=== PATIENT | female | born 1960 | race African-American/Black ===

== ENCOUNTER 2019-10-15 13:31 | Inpatient (IN) | payer OTHER ==
--- NOTE | 2019-10-15 16:20 | HP ---
CIWA Score - Admission Criteria OASAS Guidelines: Admission for Medically Managed Detox: Requires at least one of the followin. CIWA greater than 12 2. Seizures within the past 24 hours 3. Delirium tremens within the past 24 hours 4. Hallucinations within the past 24 hours 5. Acute intervention needed for co occurring medical disorder 6. Acute intervention needed for co occurring psychiatric disorder 7. Severe withdrawal that cannot be handled at a lower level of care (continued vomiting, continued diarrhea, abnormal vital signs) requiring intravenous medication and/or fluids 8. Admission ROS S - HPI Chief Complaint: Seeking admission to Rehab. Allergies/Adverse Reactions: Allergies Allergy/AdvReac Type Severity Reaction Status Date / Time ibuprofen [From Motrin] Allergy Swelling Verified 10/15/19 17:22 Penicillins Allergy Swelling Verified 10/15/19 17:22 History of Present Illness: 59 years old female is seeking admission to Rehab. This is her first admission at [facility]. She reports that she completed her detox from alcohol at [facility] for the period - 10/15/2019. She is on Methadone 30mg tablet oral daily maintenance therapy with [facility]. Dose is yet to be confirmed by the nurse. Patient reports medical history of diabetes type 2, hypertension, hyperlipidemia, asthma, GERD and psych. history of depression. She denies suicidal attempt/ suicidal ideation at this time. She also reports 2 strokes from uncontrolled blood pressure. Patient is on SSI and lives alone in [place]. Exam Limitations: No Limitations - Ebola screening Have you traveled outside of the country in the last 21 days: No Have you been sick,other than usual withdrawal symptoms: No Do you have a fever: No - Review of Systems Constitutional: No Symptoms Reported EENT: reports: No Symptoms Reported Respiratory: reports: No Symptoms reported Cardiac: reports: No Symptoms Reported GI: reports: No Symptoms Reported : reports: No Symptoms Reported Musculoskeletal: reports: No Symptoms Reported Integumentary: reports: No Symptoms Reported Neuro: reports: No Symptoms reported Endocrine: reports: No Symptoms Reported Hematology: reports: No Symptoms Reported Psychiatric: reports: No Sypmtoms Reported, Mood/Affect Appropiate, Orientated x3 Other Systems: Reviewed and Negative Patient History - Patient Medical History Hx Anemia: No Hx Asthma: Yes Hx Chronic Obstructive Pulmonary Disease (COPD): No Hx Cancer: No Hx Cardiac Disorders: No Hx Congestive Heart Failure: No Hx Hypertension: Yes Hx Hypercholesterolemia: Yes Hx Pacemaker: No HX Cerebrovascular Accident: Yes (2 strokes) Hx Seizures: No Hx Diabetes: Yes Hx Gastrointestinal Disorders: Yes (GERD) Hx Liver Disease: No Hx Genitourinary Disorders: No Hx Sexually Transmitted Disorders: No Hx Renal Disease (ESRD): No Hx Thyroid Disease: No Hx Human Immunodeficiency Virus (HIV): No (Negative 2018) Hx Hepatitis C: No Hx Depression: Yes Hx Suicide Attempt: No (Denies suicidal ideation at this time) Hx Bipolar Disorder: No Hx Schizophrenia: No - Patient Surgical History Past Surgical History: Yes Hx Neurologic Surgery: No Hx Cataract Extraction: No Hx Cardiac Surgery: No Hx Lung Surgery: No Hx Breast Surgery: No Hx Breast Biopsy: No Hx Abdominal Surgery: No Hx Appendectomy: No Hx Cholecystectomy: No Hx Genitourinary Surgery: No Hx Section: No Hx Orthopedic Surgery: No Hx Hysterectomy: Yes (2003) Anesthesia Reaction: No - PPD History Previous Implant?: Yes Documented Results: Negative w/o proof Implanted On Prior R Admission?: No PPD to be Administered?: Yes - Reproductive History Patient is a Female of Child Bearing Age (11 -55 yrs old): Yes LMP comment: Menopausal - Smoking Cessation Smoking history: Current every day smoker Have you smoked in the past 12 months: Yes Aproximately how many cigarettes per day: 20 Hx Chewing Tobacco Use: No Initiated information on smoking cessation: Yes 'Breaking Loose' booklet given: 10/15/19 - Substance & Tx. History Hx Alcohol Use: Yes Hx Substance Use: Yes Substance Use Type: Alcohol, Cocaine Hx Substance Use Treatment: Yes ([facility]) - Substances abused Alcohol Substance route: Oral Frequency: Daily Amount used: beer- 1 six pack Age of first use: 11 Date of last use: 10/12/19 Admission Physical Exam BHS - Physical General Appearance: Yes: Within Normal Limits HEENTM: Yes: Within Normal Limits, EOMI, Normal ENT Inspection, Normal Voice, ASHA Respiratory: Yes: Lungs Clear, Normal Breath Sounds, No Respiratory Distress Neck: Yes: Within Normal Limits Breast: Yes: Breast Exam Deferred Cardiology: Yes: Bradycardia (Patient reports history of bradycardia) Abdominal: Yes: Normal Bowel Sounds, Soft Genitourinary: Yes: Within Normal Limits Back: Yes: Normal Inspection Musculoskeletal: Yes: Within Normal Limits Extremities: Yes: Normal Inspection Neurological: Yes: Within Normal Limits, Alert, Normal Mood/Affect Integumentary: Yes: Warm Lymphatic: Yes: Within Normal Limits - Diagnostic (1) Alcohol dependence Current Visit: Yes Status: Chronic Qualifiers: Complication of substance-induced condition: uncomplicated (2) Cocaine dependence Current Visit: Yes Status: Chronic Qualifiers: Complication of substance-induced condition: uncomplicated (3) Methadone maintenance therapy patient Current Visit: Yes Status: Chronic (4) Hypertension Current Visit: Yes Status: Chronic Qualifiers: Hypertension type: unspecified Qualified Code(s): I10 - Essential (primary ) hypertension (5) Hyperlipidemia Current Visit: Yes Status: Chronic Qualifiers: Hyperlipidemia type: unspecified Qualified Code(s): E78.5 - Hyperlipidemia , unspecified (6) Type 2 diabetes mellitus Current Visit: Yes Status: Chronic Qualifiers: Diabetes mellitus complication status: without complication (7) Asthma Current Visit: Yes Status: Chronic Qualifiers: Asthma complication type: unspecified (8) GERD (gastroesophageal reflux disease) Current Visit: Yes Status: Chronic Qualifiers: Esophagitis presence: esophagitis presence not specified Qualified Code(s) : K21.9 - Gastro-esophageal reflux disease without esophagitis (9) H/O stroke without residual deficits Current Visit: No Status: Resolved Cleared for Admission S - Detox or Rehab [facility] Level of Care: Observation Bed Claeared for Rehab Admission: Yes Breathalyzer - Breathalyzer Breathalyzer: 0 Urine Drug Screen - Test Device Lot number: [id number] Expiration date: 04/16/21 - Control Is test valid?: Yes - Results Drug screen NEGATIVE: No Urine drug screen results: REINIER-Cocaine, MTD-Methadone, BZO-Benzodiazepines Inpatient Rehab Admission - Rehab Decision to Admit Inpatient rehab admission?: Yes - Initial Determination Are CD services needed?: No Free of communicable disease: Yes Not in need of hospitalization: Yes - Rehab Admission Criteria Previous failed treatment: Yes Poor recovery environment: Yes Comorbidities: Yes Lacks judgement: No Patient is meeting Inpatient Rehab admission criteria:: Yes
[2019-10-15] MEDS ORDERED: NICOTINE POLACRILEX 2 MG GUM BC PRN (16:50)
[2019-10-15] MEDS ORDERED: MAGNESIUM CITRATE 300 ML BOTTLE PO PRN (16:50)
[2019-10-15] MEDS ORDERED: guaiFENesin 200 MG/10 ML 10 ML UNIT-DOSE CUPS PO PRN (16:50)
[2019-10-15] MEDS ORDERED: LOPERAMIDE HCL 2 MG CAPSULE PO PRN (16:50)
[2019-10-15] MEDS ORDERED: MAG HYDROX/AL HYDROX/SIMETH 30 ML UNIT-DOSE CUP PO PRN (16:50)
[2019-10-15] MEDS ORDERED: P-EPHED 60MG/TRIPROLIDI 2.5MG TABLET PO PRN (16:50)
[2019-10-15] MEDS ORDERED: MAGNESIUM HYDROX 2400MG/30ML ORAL SUSPENSION 30 ML CUP PO PRN (16:50)
[2019-10-15] MEDS ORDERED: MENTHOL/PHENOL 1 EACH UD MM PRN (16:50)
[2019-10-15] MEDS ORDERED: ACETAMINOPHEN 325 MG TABLET (FP) PO PRN (16:50)
[2019-10-15] MEDS ORDERED: ALBUTEROL SO4 8 GM HFA INHALER IH PRN (16:53)
[2019-10-15 17:33] VITALS: BMI 21.9
[2019-10-15] MEDS ORDERED: TUBERCULIN PPD 5 TU/0.1ML VIAL ID ONE (18:19)
[2019-10-15] MEDS: metFORMIN HCL 500 MG TABLET (FP) PO SCH (18:47)
[2019-10-15] MEDS: ATORVASTATIN CA 20 MG TABLET (FP) PO SCH (21:50)
[2019-10-15] MEDS: MONTELUKAST NA 10 MG TABLET PO SCH (21:50)
[2019-10-15] MEDS: THIAMINE HCL 100 MG TABLET (FP) PO SCH (21:50)
[2019-10-15] MEDS ORDERED: MELATONIN 5 MG TABLETS PO PRN (22:00)
[2019-10-16] MEDS ORDERED: PT OWN MED DRAWER 7, Y5N ONE (06:51)
[2019-10-16] MEDS: metFORMIN HCL 500 MG TABLET (FP) PO SCH ×2 (07:23→17:15)
[2019-10-16] MEDS: CLOPIDOGREL BISULFATE 75 MG TABLET (FP) PO SCH (07:23)
--- NOTE | 2019-10-16 08:21 | PN ---
S Progress Note Note: Pt is a 59 y/o female with a hx of YANNICK admitted to rehab yesterday 10/15/19 from [facility]. Vital Signs - 24 hr 10/15/19 10/16/19 10/16/19 17:27 00:30 03:30 Temperature 97.8 F Pulse Rate 54 L Respiratory 18 16 16 Rate Blood Pressure 137/82 10/16/19 07:13 Temperature 97.9 F Pulse Rate 59 L Respiratory 16 Rate Blood Pressure 118/78 Laboratory Tests 10/15/19 10/16/19 18:46 07:21 POC Glucometer 122 95 Alert o x 3 nad oob ambulating with steady gait. Extremities/skin:no edema;skin intact A/P YANNICK new rehab pt Maintain safety cont rehab increase po fluids.
[2019-10-16] MEDS: NICOTINE 21 MG/24 HOURS TOPICAL PATCH TD SCH (09:25)
[2019-10-16] MEDS: FAMOTIDINE 20 MG TABLET PO SCH ×2 (09:25→21:20)
[2019-10-16] MEDS: PRENATAL VITAMINS W/ FOLIC ACID TABLET (FP) PO SCH (09:25)
[2019-10-16] MEDS: ENALAPRIL MALEATE 10 MG TABLET (FP) PO SCH (10:28)
[2019-10-16 12:35] LABS: HEMATOCRIT 39.5 % (32.4-45.2); HEMOGLOBIN 13.1 GM/dL (10.7-15.3); MCH 30.7 pg (25.7-33.7); MCHC 33.1 g/dl (32.0-36.0); MEAN CELL VOLUME 92.8 fl (80-96); MEAN PLT VOLUME 9.8 fl (7.5-11.1); PLATELET COUNT 204 K/MM3 (134-434); RBC 4.26 M/mm3 (3.60-5.2); RDW 13.8 % (11.6-15.6); WHITE BLOOD COUNT 5.2 K/mm3 (4.0-10.0)
[2019-10-16 12:39] LABS: ALBUMIN 2.8 g/dl (3.4-5.0); BILIRUBIN,TOTAL 0.3 mg/dL (0.2-1); BLOOD UREA NITROGEN 16.3 mg/dL (7-18); CALCIUM 8.9 mg/dL (8.5-10.1); POTASSIUM 4.2 mmol/L (3.5-5.1); TOT PROT 5.5 g/dl (6.4-8.2)
--- NOTE | 2019-10-16 12:43 | EKG ---
Test Reason : Blood Pressure : / mmHG Vent. Rate : 049 BPM Atrial Rate : 049 BPM P-R Int : 158 ms QRS Dur : 074 ms QT Int : 458 ms P-R-T Axes : 059 032 028 degrees QTc Int : 413 ms SINUS BRADYCARDIA OTHERWISE NORMAL ECG NO PREVIOUS ECGS AVAILABLE Confirmed by MARICHUY MARTINEZ MD ([id number]) on 10/16/2019 12:43:03 PM Referred By: KUMAR Confirmed By:MARICHUY MARTINEZ MD
[2019-10-16] MEDS: THIAMINE HCL 100 MG TABLET (FP) PO SCH (21:19)
[2019-10-16] MEDS: ATORVASTATIN CA 20 MG TABLET (FP) PO SCH (21:20)
[2019-10-16] MEDS: MONTELUKAST NA 10 MG TABLET PO SCH (21:20)
[2019-10-17] MEDS ORDERED: PT OWN MED DRAWER 7, Y5N ONE ×2 (06:45→08:29)
[2019-10-17] MEDS: CLOPIDOGREL BISULFATE 75 MG TABLET (FP) PO SCH (06:46)
[2019-10-17] MEDS: metFORMIN HCL 500 MG TABLET (FP) PO SCH ×2 (06:46→19:01)
[2019-10-17] MEDS: FAMOTIDINE 20 MG TABLET PO SCH ×2 (09:48→22:02)
[2019-10-17] MEDS: NICOTINE 21 MG/24 HOURS TOPICAL PATCH TD SCH (09:48)
[2019-10-17] MEDS: PRENATAL VITAMINS W/ FOLIC ACID TABLET (FP) PO SCH (09:48)
[2019-10-17] MEDS: ENALAPRIL MALEATE 10 MG TABLET (FP) PO SCH (09:49)
--- NOTE | 2019-10-17 14:12 | PN ---
[facility] Progress Note Note: Patient seen for c/o left ear pain. Patient states pain started 2 days ago and progressively worsened. Denies toothache, headache, cough, nasal congestion and sore throat. Laboratory Tests 10/15/19 10/16/19 10/16/19 18:46 07:21 08:25 WBC 5.2 RBC 4.26 Hgb 13.1 Hct 39.5 MCV 92.8 MCH 30.7 MCHC 33.1 RDW 13.8 Plt Count 204 MPV 9.8 Sodium Potassium Chloride Carbon Dioxide Anion Gap BUN Creatinine Est GFR (CKD-EPI)AfAm Est GFR (CKD-EPI)NonAf POC Glucometer 122 95 Random Glucose Calcium Total Bilirubin AST ALT Alkaline Phosphatase Total Protein Albumin RPR Titer 10/16/19 10/16/19 10/16/19 08:25 08:25 11:31 WBC RBC Hgb Hct MCV MCH MCHC RDW Plt Count MPV Sodium 141 Potassium 4.2 Chloride 106 Carbon Dioxide 30 Anion Gap 6 L BUN 16.3 Creatinine 1.0 Est GFR (CKD-EPI)AfAm 70.42 Est GFR (CKD-EPI)NonAf 60.76 POC Glucometer 89 Random Glucose 137 H Calcium 8.9 Total Bilirubin 0.3 AST 20 ALT 26 Alkaline Phosphatase 101 Total Protein 5.5 L Albumin 2.8 L RPR Titer Nonreactive 10/16/19 10/17/19 17:14 06:44 WBC RBC Hgb Hct MCV MCH MCHC RDW Plt Count MPV Sodium Potassium Chloride Carbon Dioxide Anion Gap BUN Creatinine Est GFR (CKD-EPI)AfAm Est GFR (CKD-EPI)NonAf POC Glucometer 104 80 Random Glucose Calcium Total Bilirubin AST ALT Alkaline Phosphatase Total Protein Albumin RPR Titer PE alert and oriented x 3 skin warm and dry +perrla, eoms intact bl right ear neg redness, swelling, hearing normal left ear TM pearly perera, cerumen in canal, +redness posterior auricular area, + tenderness with manipulation of ear lobe Vital Signs Period Temp Pulse Resp BP Sys/Gibbs Pulse Ox Last 24 Hr 97.1 F 54 16-16 127/74 A/P: Otitis Externa will start cipro 250mg po bid x 7 days tylenol prn for pain warm compress tid prn monitor clinically
[2019-10-17 17:29] LABS: EPI CELLS 11.4 /HPF (0-5/HPF); HYALINE CASTS 1 /lpf (0-8); URINE APPEARANCE CLOUDY; URINE BACTERIA 356.4 /hpf (NEGATIVE); URINE BILIRUBIN NEGATIVE (NEGATIVE); URINE COLOR YELLOW; URINE GLUCOSE (UA) NEGATIVE (NEGATIVE); URINE KETONE NEGATIVE (NEGATIVE); URINE LEUK ESTERASE TRACE (NEGATIVE); URINE NITRITE NEGATIVE (NEGATIVE); URINE PROTEIN NEGATIVE (NEGATIVE); URINE RBC 2 /hpf (0-4); URINE UROBILINOGEN 0.2 mg/dL (0.2-1.0); URINE WBC 16 /hpf (0-5)
[2019-10-17] MEDS: THIAMINE HCL 100 MG TABLET (FP) PO SCH (22:02)
[2019-10-17] MEDS: ATORVASTATIN CA 20 MG TABLET (FP) PO SCH (22:02)
[2019-10-17] MEDS: MONTELUKAST NA 10 MG TABLET PO SCH (22:02)
[2019-10-18] MEDS ORDERED: PT OWN MED DRAWER 7, Y5N ONE (06:02)
[2019-10-18] MEDS: CLOPIDOGREL BISULFATE 75 MG TABLET (FP) PO SCH (06:30)
[2019-10-18] MEDS: metFORMIN HCL 500 MG TABLET (FP) PO SCH ×2 (06:31→16:53)
[2019-10-18 07:29] VITALS: TEMP 97.7
[2019-10-18] MEDS: PRENATAL VITAMINS W/ FOLIC ACID TABLET (FP) PO SCH (10:51)
[2019-10-18] MEDS: FAMOTIDINE 20 MG TABLET PO SCH ×2 (10:51→21:25)
[2019-10-18] MEDS: ENALAPRIL MALEATE 10 MG TABLET (FP) PO SCH (10:51)
[2019-10-18] MEDS: NICOTINE 21 MG/24 HOURS TOPICAL PATCH TD SCH (10:52)
[2019-10-18] MEDS: THIAMINE HCL 100 MG TABLET (FP) PO SCH (21:25)
[2019-10-18] MEDS: ATORVASTATIN CA 20 MG TABLET (FP) PO SCH (21:25)
[2019-10-18] MEDS: MONTELUKAST NA 10 MG TABLET PO SCH (21:25)
[2019-10-19] MEDS ORDERED: PT OWN MED DRAWER 7, Y5N ONE ×2 (05:14→08:46)
[2019-10-19] MEDS: CLOPIDOGREL BISULFATE 75 MG TABLET (FP) PO SCH (06:26)
[2019-10-19] MEDS: metFORMIN HCL 500 MG TABLET (FP) PO SCH ×2 (06:26→17:02)
[2019-10-19 09:50] VITALS: BP 134/75; PULSE 59
[2019-10-19] MEDS: FAMOTIDINE 20 MG TABLET PO SCH ×2 (10:25→21:51)
[2019-10-19] MEDS: PRENATAL VITAMINS W/ FOLIC ACID TABLET (FP) PO SCH (10:25)
[2019-10-19] MEDS: ENALAPRIL MALEATE 10 MG TABLET (FP) PO SCH (10:26)
[2019-10-19] MEDS: NICOTINE 21 MG/24 HOURS TOPICAL PATCH TD SCH (10:26)
--- NOTE | 2019-10-19 21:06 | DS ---
[facility] Rehab Discharge Summary - [facility] Rehab Discharge Summary Admission Date: 10/15/19 Discharge Date: 10/19/19 - History Additional Comments: Patient is leaving against medical advice. She refused to give a reason for her decision to leave, stating " I can leave when I want to, I am not in longterm". Risks and consequences of her action reinforced. Patient states that she is 59 years old and can take care of herself. She is alert and oriented to person, place and time. Surveillance Officer and security aware. Pertinent Past History: Hypertensin, hyperlipidemia, GERD, DM type 2, asthma, H/o of stroke, alcohol dependence, cocaine dependence, MMTP - Discharge Physical Exam Vital Signs: Vital Signs Temperature 97.7 F 10/19/19 07:08 Pulse Rate 59 L 10/19/19 09:49 Respiratory Rate 18 10/19/19 07:08 Blood Pressure 134/75 10/19/19 09:49 O2 Sat by Pulse Oximetry (%) Laboratory Last Values WBC 5.2 K/mm3 (4.0-10.0) 10/16/19 08:25 RBC 4.26 M/mm3 (3.60-5.2) 10/16/19 08:25 Hgb 13.1 GM/dL (10.7-15.3) 10/16/19 08:25 Hct 39.5 % (32.4-45.2) 10/16/19 08:25 MCV 92.8 fl (80-96) 10/16/19 08:25 MCH 30.7 pg (25.7-33.7) 10/16/19 08:25 MCHC 33.1 g/dl (32.0-36.0) 10/16/19 08:25 RDW 13.8 % (11.6-15.6) 10/16/19 08:25 Plt Count 204 K/MM3 (134-434) 10/16/19 08:25 MPV 9.8 fl (7.5-11.1) 10/16/19 08:25 Sodium 141 mmol/L (136-145) 10/16/19 08:25 Potassium 4.2 mmol/L (3.5-5.1) 10/16/19 08:25 Chloride 106 mmol/L (98-107) 10/16/19 08:25 Carbon Dioxide 30 mmol/L (21-32) 10/16/19 08:25 Anion Gap 6 MMOL/L (8-16) L 10/16/19 08:25 BUN 16.3 mg/dL (7-18) 10/16/19 08:25 Creatinine 1.0 mg/dL (0.55-1.3) 10/16/19 08:25 Est GFR (CKD-EPI)AfAm 70.42 10/16/19 08:25 Est GFR (CKD-EPI)NonAf 60.76 10/16/19 08:25 POC Glucometer 74 UNITS (80-120) 10/19/19 11:36 Random Glucose 137 mg/dL (74-106) H 10/16/19 08:25 Calcium 8.9 mg/dL (8.5-10.1) 10/16/19 08:25 Total Bilirubin 0.3 mg/dL (0.2-1) 10/16/19 08:25 AST 20 U/L (15-37) 10/16/19 08:25 ALT 26 U/L (13-61) 10/16/19 08:25 Alkaline Phosphatase 101 U/L (45-117) 10/16/19 08:25 Total Protein 5.5 g/dl (6.4-8.2) L 10/16/19 08:25 Albumin 2.8 g/dl (3.4-5.0) L 10/16/19 08:25 Urine Color Yellow 10/17/19 14:30 Urine Appearance Cloudy 10/17/19 14:30 Urine pH 7.0 (5.0-8.0) 10/17/19 14:30 Ur Specific [place] 1.013 (1.010-1.035) 10/17/19 14:30 Urine Protein Negative (NEGATIVE) 10/17/19 14:30 Urine Glucose (UA) Negative (NEGATIVE) 10/17/19 14:30 Urine Ketones Negative (NEGATIVE) 10/17/19 14:30 Urine Blood Negative (NEGATIVE) 10/17/19 14:30 Urine Nitrite Negative (NEGATIVE) 10/17/19 14:30 Urine Bilirubin Negative (NEGATIVE) 10/17/19 14:30 Urine Urobilinogen 0.2 mg/dL (0.2-1.0) 10/17/19 14:30 Ur Leukocyte Esterase Trace (NEGATIVE) 10/17/19 14:30 Urine WBC (Auto) 16 /hpf (0-5) 10/17/19 14:30 Urine RBC (Auto) 2 /hpf (0-4) 10/17/19 14:30 Urine Casts (Auto) 1 /lpf (0-8) 10/17/19 14:30 U Epithel Cells (Auto) 11.4 /HPF (0-5/HPF) 10/17/19 14:30 Urine Bacteria (Auto) 356.4 /hpf (NEGATIVE) 10/17/19 14:30 RPR Titer Nonreactive (NONREACTIVE) 10/16/19 08:25 Pertinent Admission Physical Exam Findings: Seeking Rehab. for alcohol and cocaine dependence - Medication Discharge Medications: Ambulatory Orders Clopidogrel Bisulfate [Plavix] 75 mg PO DAILY 10/11/19 Enalapril Maleate [Vasotec -] 10 mg PO DAILY 10/11/19 Gabapentin 400 mg PO TID 10/11/19 Metformin HCl [Glucophage] 1,000 mg PO BID 10/11/19 Montelukast Na [Singulair -] 10 mg PO DAILY 10/11/19 Omeprazole 40 mg PO DAILY 10/11/19 Simvastatin 40 mg PO HS 10/11/19 Albuterol Sulfate Inhaler - [Ventolin Hfa Inhaler -] 2 inh PO Q6H 10/15/19 - Discharge Instructions Diet, activity, other medical instructions: Diet: Diabetic diet Activity: As tolerated Other medical instructions: F/U with PCP as needed - Diagnosis (1) Alcohol dependence Current Visit: Yes Status: Chronic Qualifiers: Complication of substance-induced condition: uncomplicated (2) Cocaine dependence Current Visit: Yes Status: Chronic Qualifiers: Complication of substance-induced condition: uncomplicated (3) Methadone maintenance therapy patient Current Visit: Yes Status: Chronic (4) Hypertension Current Visit: Yes Status: Chronic Qualifiers: Hypertension type: unspecified Qualified Code(s): I10 - Essential (primary ) hypertension (5) Hyperlipidemia Current Visit: Yes Status: Chronic Qualifiers: Hyperlipidemia type: unspecified Qualified Code(s): E78.5 - Hyperlipidemia , unspecified (6) Type 2 diabetes mellitus Current Visit: Yes Status: Chronic Qualifiers: Diabetes mellitus complication status: without complication (7) Asthma Current Visit: Yes Status: Chronic Qualifiers: Asthma complication type: unspecified (8) GERD (gastroesophageal reflux disease) Current Visit: Yes Status: Chronic Qualifiers: Esophagitis presence: esophagitis presence not specified Qualified Code(s) : K21.9 - Gastro-esophageal reflux disease without esophagitis - AMA Did Patient Leave Against Medical Advice: Yes
[2019-10-19] MEDS: ATORVASTATIN CA 20 MG TABLET (FP) PO SCH (21:50)
[2019-10-19] MEDS: THIAMINE HCL 100 MG TABLET (FP) PO SCH (21:51)
[2019-10-19] MEDS: MONTELUKAST NA 10 MG TABLET PO SCH (21:51)
== END 2019-10-19 21:05 | disposition left against medical advice (07) | DRG 770 ==
LOC: YASAS 13:31 → Y3E 17:27
PROVIDERS: ADMIT Allergy & Immunology; ATTEND Allergy & Immunology
PROC: HZ2ZZZZ Detoxification Services for Substance Abuse Treatment (ICD-10-PCS; principal; 2019-10-15)
DX: F10.230 Alcohol dependence with withdrawal, uncomplicated (principal); F11.20 Opioid dependence, uncomplicated; F14.20 Cocaine dependence, uncomplicated; I10 Essential (primary) hypertension; E78.5 Hyperlipidemia, unspecified; E11.9 Type 2 diabetes mellitus without complications; J45.909 Unspecified asthma, uncomplicated; K21.9 Gastro-esophageal reflux disease without esophagitis; H60.92 Unspecified otitis externa, left ear; Z86.73 Personal history of transient ischemic attack (TIA), and cerebral infarction without residual deficits; Z88.0 Allergy status to penicillin; Z88.6 Allergy status to analgesic agent
CPT/HCPCS: 36415; 80053; 81003; 82962; 85027; 86593; 93005; 93010